=== PATIENT | female | born 1960 | race Caucasian/White ===

== ENCOUNTER 2021-10-08 09:50 | Observation (INO) | payer MEDICARE, MEDICAID, SELFPAY ==
[2021-10-08] VITALS (21 sets, daily range): BP systolic 102–153; BP diastolic 58–81; PULSE 81–98; RESP 14–18; TEMP 36.9–37.1; O2SAT 88–98; BMI 34.7
--- NOTE | 2021-10-08 11:22 | ED.DENTAL ---
HPI - Dental/Oral General Chief complaint: Dental/Oral Stated complaint: oral surgery yesterday, mouth swollen Time Seen by Provider: 10/08/21 11:22 Source: patient and family Mode of arrival: Wheelchair Limitations: no limitations History of Present Illness HPI Narrative: This is a 61-year-old female who comes emergency department with complaint oral surgery yesterday. Patient states she has had 2 lumps for several days on the right cheek and underneath the mandible. She states she saw the dentist yesterday she had abscessed tooth and they did a drooling or extraction placed a small drain and suture that was dissolved pill. She states she woke up this morning and that there was significant increase of swelling of the cheek and underneath the chin. She also notices a slight amount of swelling of the left tongue. She denies fevers or chills. She denies any difficulty with breathing. She denies any sensation of swelling of the posterior oropharynx or lower airway. She denies any issues with eating drinking or swallowing her secretions. She denies any change to her voice or hoarseness. No stridor. She did apply ice packs to the affected area and has had some improvement in her swelling today. She has photos that do show some improvement but still present. Nausea or vomiting. No chest pain or shortness of breath. No other GI or urinary symptoms. She has been on amoxicillin since last Monday and has been continuing to take this. She is a diabetic, she is on insulin, medication for hypothyroid, dyslipidemia and hypertension as well as mood. She does smoke every day. She drinks occasionally, no illicit. Related Data Home Medications Medication Instructions Recorded Confirmed amlodipine 10 mg tablet 5 mg PO DAILY 07/22/20 10/08/21 cyclobenzaprine 5 mg tablet 5 mg PO TID PRN 07/22/20 10/08/21 duloxetine 30 mg capsule,delayed 30 mg PO DAILY 07/22/20 10/08/21 release (Cymbalta) duloxetine 60 mg capsule,delayed 60 mg PO DAILY 07/22/20 10/08/21 release (Cymbalta) gabapentin 600 mg tablet 600 mg PO BEDTIME 07/22/20 10/08/21 hydrochlorothiazide 25 mg tablet 25 mg PO DAILY 07/22/20 10/08/21 insulin glargine 100 unit/mL 24 unit SUBCUT BID 07/22/20 10/08/21 subcutaneous solution (Lantus U-100 Insulin) levothyroxine 125 mcg capsule 125 mcg PO DAILY 07/22/20 10/08/21 liothyronine 5 mcg tablet 10 mcg PO DAILY 07/22/20 10/08/21 lisinopril 40 mg tablet 20 mg PO DAILY 07/22/20 10/08/21 metformin 1,000 mg tablet 1,000 mg PO BID 07/22/20 10/08/21 mupirocin 2 % topical ointment 1 applic TOPICAL DAILY PRN 07/22/20 10/08/21 oxycodone-acetaminophen 7.5 mg-325 See Rx Instructions .ROUTE 07/22/20 10/08/21 mg tablet (Percocet) .COMPLEX PRN rosuvastatin 20 mg tablet 40 mg PO DAILY 07/22/20 10/08/21 Sleep3 See Rx Instructions .ROUTE .COMPLEX 10/08/21 10/08/21 amoxicillin 500 mg capsule 500 mg PO Q6H 10/08/21 10/08/21 bupropion HCl 150 mg tablet,12 hr 150 mg PO BID 10/08/21 10/08/21 sustained-release celecoxib 200 mg capsule 200 mg PO DAILY 10/08/21 10/08/21 trazodone 50 mg tablet See Rx Instructions .ROUTE 10/08/21 10/08/21 .COMPLEX PRN Allergies Allergy/AdvReac Type Severity Reaction Status Date / Time bee venom protein (honey bee) Allergy Severe Swelling Verified 10/08/21 10:11 of Lip/Tongue/Throat adhesive Allergy Intermediate rash Verified 10/08/21 10:11 aspirin Allergy Intermediate BLEEDING Verified 10/08/21 10:11 latex Allergy Intermediate rash Verified 10/08/21 10:11 Review of Systems Review of Systems ROS Unobtainable: All systems reviewed & are unremarkable except as noted in HPI and below Patient History Medical History Degenerative joint disease (DJD) of hip Diabetes Hypothyroidism Insomnia Lumbar radiculopathy Morbid obesity due to excess calories Sacral dysfunction Spondylolisthesis at L4-L5 level Status post lumbar spinal arthrodesis Tobacco use Surgical History H/O Spinal surgery S/P foot surgery, left Family History Mother Hypertension Brother Depression Social History household members: family Smoking Status: Current every day smoker alcohol intake: current Smoking Status: Current every day smoker alcohol intake frequency: 0-2 drinks per day Substance Use Type: does not use Exam Narrative Exam Narrative: GEN: well nourished, well appearing female, alert and oriented x 3, patient appears to be in mild distress. HEENT: Atraumatic, pupils are equal round reactive to light, extraocular movements are intact, nares are clear, TMs are clear with no fluid, there is no conjunctival pallor. Throat is clear without any exudates, erythema, tonsillar enlargement or uvular deviation, patient appears to have tooth 31 extracted or drilled out, there is a small suture in place. Patient has significant swelling and induration of the right cheek and underneath the mandible with fullness and tightness. There is no erythema or warmth appreciated the swelling extends underneath the chin and she has some mild swelling of the left side of her tongue and the left gum region. Uvula is midline, no tonsillar swelling. Patient does not have any hoarseness or change to her voice. She is able to lay flat back in the bed. She has no issues swallowing or handling her secretions. She does not have any swelling of the lips. HEART: Regular rate and rhythm without murmur, clicks, rubs. No carotid bruits, pulses are equal in upper and lower extremities LUNGS:Lungs clear to auscultation, no wheezes, rales, crackles, chest moves symmetrically ABD:bowel sounds normal, soft, non-tender, no guarding, rebound, rigidity, no masses noted, no hepatosplenomegaly :No CVA tenderness MSCL: Non-tender, no muscle atrophy, muscles strength 5/5 upper and lower extremities, full range of motion, normal gait NEURO:CN 2-12 intact, sensation normal SKIN: No erythema or warmth appreciated. Initial Vital Signs Initial Vital Signs: Vital Signs Temperature 98.4 F 10/08/21 10:00 Pulse Rate 90 10/08/21 10:00 Respiratory Rate 14 10/08/21 10:00 Blood Pressure 137/78 10/08/21 10:00 Pulse Oximetry 92 10/08/21 10:00 Course Orders Ordered: ED Orders 10/08/21 11:25 BMP [Basic Metabolic Panel] Stat CBC Auto Diff [Complete Blood Count AUTO DIFF] Stat Lactate (Lactic Acid) Stat Procalcitonin Stat 10/08/21 11:33 CT soft tissue neck w con Stat 10/08/21 12:05 Blood Culture Stat 10/08/21 12:56 COVID19 -Nasal RAPID/Pre-Proc Stat Acetaminophen (Acetaminophen 325 Mg Tablet) 975 mg PO Q8HR PRN PRN Reason: Pain, Mild (1-3) Amlodipine Besylate (Amlodipine 5 Mg Tablet) 5 mg PO DAILY KWAME Bupropion HCl (Bupropion Sr 150 Mg Tab) 150 mg PO BID KWAME Celecoxib (Celecoxib 200 Mg Capsule) 200 mg PO DAILY KWAME Cyclobenzaprine HCl (Cyclobenzaprine 10 Mg Tablet) 5 mg PO TID PRN PRN Reason: Moderate Pain (Scale Score 5-6) Duloxetine HCl (Duloxetine 30 Mg Capsule) 90 mg PO DAILY KWAME Gabapentin (Gabapentin 600 Mg Tablet) 600 mg PO BEDTIME KWAME Ketorolac Tromethamine (Ketorolac 10 Mg Tablet) 10 mg PO Q6HR PRN PRN Reason: Pain, Moderate (4-6) Stop: 10/11/21 17:53 Levothyroxine Sodium (Levothyroxine 125 Mcg Tablet) 125 mcg PO 0600 KWAME Liothyronine Sodium (Liothyronine 5 Mcg Tablet) 10 mcg PO DAILY KWAME Lisinopril (Lisinopril 20 Mg Tablet) 20 mg PO DAILY KWAME Ondansetron HCl (Ondansetron 4 Mg/2 Ml Inj) 4 mg IV Q8HR PRN PRN Reason: Nausea And Vomiting Trazodone HCl (Trazodone 50 Mg Tablet) 100 mg PO BEDTIME PRN PRN Reason: insomnia Discontinued Medications Dexamethasone (Dexamethasone 10 Mg/Ml Vial) 10 mg IV NOW ONE Stop: 10/08/21 11:34 Last Admin: 10/08/21 11:56 Dose: 10 mg Documented by: KRUNAL Sodium Chloride (Normal Saline 0.9%) 1,000 mls @ 1,000 mls/hr IV BOLUS ONE Stop: 10/08/21 12:32 Last Infusion: 10/08/21 14:01 Dose: 0 mls/hr Documented by: Admin: 10/08/21 11:53 Dose: 1,000 mls/hr Documented by: KRUNAL Ampicillin Sodium/Sulbactam (Sodium 3 gm/ Sodium Chloride) 100 mls @ 100 mls/hr IV NOW ONE Stop: 10/08/21 11:36 Last Infusion: 10/08/21 13:50 Dose: 0 mls/hr Documented by: Admin: 10/08/21 12:31 Dose: 100 mls/hr Documented by: KRUNAL Sodium Chloride (Normal Saline 0.9%) 1,000 mls @ 1,000 mls/hr IV BOLUS ONE Stop: 10/08/21 12:43 Last Infusion: 10/08/21 15:16 Dose: 0 mls/hr Documented by: Admin: 10/08/21 14:00 Dose: 1,000 mls/hr Documented by: GIOVANNY Ketorolac Tromethamine (Ketorolac 30 Mg/Ml Vial) 30 mg IV NOW ONE Stop: 10/08/21 11:34 Last Admin: 10/08/21 11:54 Dose: 30 mg Documented by: KRUNAL Consultations Consultation #1: Dr. Ochoa ENT recommends monitoring. If rapidly worsening he would ask that we contact Dr. Isaac who is on-call at 5:00 p.m. today and through the weekend. If patient develops air or signs of subcutaneous emphysema would be transferred to larger tertiary care facility. Time: 15:42 Consultation #2: Dr. Jaramillo, hospitalist. Accepts for observation, plan for IV antibiotics overnight, monitoring for airway protection and patient improving potentially discharge home tomorrow. Spoke with Dr. Ochoa and Dr. Ceballos here is also called back and is on this weekend and aware of the patient. Consultation #3: Dr. Isaac, ENT is on-call in the next 1/2 hour. Reviewed patient case. He is aware the patient and states to touch base with him if any changes or concerning issues. If she improves without any other issues during her hospital stay outpatient follow-up appropriate. Vital Signs Vital signs: Vital Signs - 8 hr 10/08/21 12:00 10/08/21 12:03 10/08/21 12:30 Pulse Rate 86 85 81 Respiratory Rate Blood Pressure 126/67 Pulse Oximetry 98 98 97 10/08/21 12:33 10/08/21 13:00 10/08/21 13:30 Pulse Rate 81 83 81 Respiratory Rate Blood Pressure 139/80 153/74 H 146/75 H Pulse Oximetry 97 95 95 10/08/21 14:00 10/08/21 14:31 10/08/21 15:00 Pulse Rate 85 89 83 Respiratory Rate Blood Pressure 149/81 H 132/69 Pulse Oximetry 95 95 10/08/21 15:10 10/08/21 15:11 10/08/21 15:30 Pulse Rate 82 Respiratory Rate 16 Blood Pressure 102/58 L Pulse Oximetry 88 L 93 92 10/08/21 16:00 Pulse Rate 83 Respiratory Rate Blood Pressure 140/69 Pulse Oximetry 93 MDM - Dental/Oral Lab Data Result diagrams: 10/08/21 11:25 10/08/21 11:25 Labs: Lab Results 10/08/21 10/08/21 10/08/21 Range/Units 11:25 11:25 11:25 WBC 12.1 H (4.5-11.0) X10^3/uL RBC 4.83 (4.0-5.2) X10^6/uL Hgb 14.8 (12.0-16.0) g/dL Hct 43.9 (36-46) % MCV 90.9 (80-100) fL MCH 30.7 (26-34) PG MCHC 33.7 (30-36) % RDW 14.2 (11.6-14.8) % Plt Count 303 (150-400) X10^3/uL Neut % (Auto) 68.9 (50-75) % Lymph % (Auto) 18.2 L (25-40) % Screven % (Auto) 11.0 (3-14) % Eos % (Auto) 1.2 L (2-4) % Baso % (Auto) 0.7 (0-2) % Neut # (Auto) 8400 H (0343-9862) /uL Lymph # (Auto) 2200 (3693-9181) /uL Screven # (Auto) 1300 H (0-900) /uL Eos # (Auto) 100 (0-450) /uL Baso # (Auto) 100 (0-100) /uL Sodium 137 (137-145) mmol/L Potassium 3.5 (3.4-5.1) mmol/L Chloride 99 (98-107) mmol/L Carbon Dioxide 32 (22-32) mmol/L BUN 7 (7-17) mg/dL Creatinine 0.68 (0.52-1.04) mg/dL Estimated GFR > 60 (>60) mL/min BUN/Creatinine Ratio 10.3 (6-22) Glucose 153 H (80-110) mg/dL Lactate 0.9 (0.7-2.1) mmol/L Calcium 9.5 (8.4-10.2) mg/dL Procalcitonin 0.06 (<0.5) ng/mL SARS-CoV-2 (PCR) (Negative) 10/08/21 Range/Units 12:56 WBC (4.5-11.0) X10^3/uL RBC (4.0-5.2) X10^6/uL Hgb (12.0-16.0) g/dL Hct (36-46) % MCV (80-100) fL MCH (26-34) PG MCHC (30-36) % RDW (11.6-14.8) % Plt Count (150-400) X10^3/uL Neut % (Auto) (50-75) % Lymph % (Auto) (25-40) % Screven % (Auto) (3-14) % Eos % (Auto) (2-4) % Baso % (Auto) (0-2) % Neut # (Auto) (5506-7452) /uL Lymph # (Auto) (9500-4235) /uL Screven # (Auto) (0-900) /uL Eos # (Auto) (0-450) /uL Baso # (Auto) (0-100) /uL Sodium (137-145) mmol/L Potassium (3.4-5.1) mmol/L Chloride (98-107) mmol/L Carbon Dioxide (22-32) mmol/L BUN (7-17) mg/dL Creatinine (0.52-1.04) mg/dL Estimated GFR (>60) mL/min BUN/Creatinine Ratio (6-22) Glucose (80-110) mg/dL Lactate (0.7-2.1) mmol/L Calcium (8.4-10.2) mg/dL Procalcitonin (<0.5) ng/mL SARS-CoV-2 (PCR) Negative (Negative) Point of Care Testing Glucose POC 155 Urine Dip Bedside Urine Glucose Negative Bedside Urine Bilirubin - Negative Bedside Urine Ketone - Negative Urine Specific Rudolph 1.015 Bedside Urine Occult Blood - Negative Bedside Urine pH 6.0 Bedside Urine Protein - Negative Bedside Urine Urobilinogen - Negative Bedside Urine Nitrite - Negative Bedside Urine Leukocytes - Negative Esterase Imaging Data CT softi tissue neck: Radiologist's Impression: [address] [address] [address] Scan Report Signed Patient: Cha Ruelas MR#: [id number] : 1960 Acct:[id number] Age/Sex: 61 / F Date of Service: 10/08/21 Loc: ED Accession Number: [id number] ?? Procedure: CT soft tissue neck w con Ordering Provider: Kristine Childs D.O. PROCEDURE:? CT SOFT TISSUE NECK W CON ? INDICATIONS:? left neck, cheek, indurated, swelling ? TECHNIQUE:? Helical axial CT of the neck was obtained after intravenous contrast injection and reformatted in multiple planes.? Radiation dose reduction was achieved utilizing automated exposure control and/or parameter adjustment according to patient's size. ? COMPARISON:? None. ? FINDINGS:? Image quality:? Excellent ? Lymph nodes:? No enlarged lymph nodes seen throughout the neck.? ? Vessels:? Visualized vasculature appears patent.? ? Neck spaces:? Associated with an empty last left mandibular molar socket, there is surrounding soft tissue edema without evidence of mature abscess.? Small medical bandage noted in laying along the buccal surface of the left mandible.? Adjacent submandibular reactive lymph nodes measure up to 7 mm short axis.? ? Otherwise, the oropharynx, nasopharynx, and pharynx demonstrate no mucosal lesions.? The vocal cords, false vocal cords, pyriform sinuses, epiglottis, vallecula, and tongue base all appear normal.? Extramucosal spaces appear unremarkable.? ? Glands:? The parotid and submandibular glands appear normal.? Thyroid gland unremarkable. ? ? Miscellaneous:? Visualized brain and orbits appear normal.? Small peripheral right upper lobe 5 mm nodule noted on image 2/73.? Otherwise, the lung apices appear clear.? Superficial soft tissues appear normal. ? Bones:? No suspicious bony lesions.? Visualized sinuses and mastoids appear unremarkable. ? ? ? IMPRESSION:? ? Left-sided soft tissue cellulitis associated last left mandibular molar tooth extraction. ?No evidence of organized abscess.? Adjacent reactive lymph nodes noted. ? Incidental right upper lobe peripheral 5 mm nodule.? Consider 1 year follow-up to assure stability ? ? ? Approved by: Sidney Castle M.D. on 10/08/2021 at 12:31? [facility] Narrative Medical decision making narrative: This is a 61-year-old female who has had several days of lump and swelling on the left side of her cheek and neck had dental surgery yesterday in [place] with her regular oral surgeon. Patient states overnight she woke up and has had significant increase in swelling which improved moderately with ice packs but does have swelling of the cheek and neck. Her airway is not clearly impinged but she has significant swelling necessitating IV access, CT soft tissue neck and monitoring of her airway. She was started on IV fluids, antibiotics IV although she has been on oral antibiotics and dexamethasone. CT shows cellulitic changes but no abscess or phlegmon appreciated. Airway appears intact with normal appearance. She had some improvement of swelling, airway appears to be intact she has occasional drops in her oxygen but this is when she falls asleep in she is normally on CPAP at home. She still is pretty significant swelling of the neck and underneath and swelling of the tongue has improved but would like to keep for observation. Case was discussed with ENT who is aware of the patient if necessary. hospitalist who accepts with plan for IV antibiotics continued monitoring. Discharge Plan Departure Patient Disposition: Admitted as Observation Clinical Impression: Cellulitis diffuse, face Admit Date/Time: 10/08/21 16:21 Admit Provider: Bernardino Jaramillo
--- NOTE | 2021-10-08 11:33 | DI.CT.S_ITS ---
PROCEDURE: CT SOFT TISSUE NECK W CON INDICATIONS: left neck, cheek, indurated, swelling TECHNIQUE: Helical axial CT of the neck was obtained after intravenous contrast injection and reformatted in multiple planes. Radiation dose reduction was achieved utilizing automated exposure control and/or parameter adjustment according to patient's size. COMPARISON: None. FINDINGS: Image quality: Excellent Lymph nodes: No enlarged lymph nodes seen throughout the neck. Vessels: Visualized vasculature appears patent. Neck spaces: Associated with an empty last left mandibular molar socket, there is surrounding soft tissue edema without evidence of mature abscess. Small medical bandage noted in laying along the buccal surface of the left mandible. Adjacent submandibular reactive lymph nodes measure up to 7 mm short axis. Otherwise, the oropharynx, nasopharynx, and pharynx demonstrate no mucosal lesions. The vocal cords, false vocal cords, pyriform sinuses, epiglottis, vallecula, and tongue base all appear normal. Extramucosal spaces appear unremarkable. Glands: The parotid and submandibular glands appear normal. Thyroid gland unremarkable. Miscellaneous: Visualized brain and orbits appear normal. Small peripheral right upper lobe 5 mm nodule noted on image 2/73. Otherwise, the lung apices appear clear. Superficial soft tissues appear normal. Bones: No suspicious bony lesions. Visualized sinuses and mastoids appear unremarkable. IMPRESSION: Left-sided soft tissue cellulitis associated last left mandibular molar tooth extraction. No evidence of organized abscess. Adjacent reactive lymph nodes noted. Incidental right upper lobe peripheral 5 mm nodule. Consider 1 year follow-up to assure stability Approved by: Sidney Castle M.D. on 10/08/2021 at 12:31
[2021-10-08 11:45] LABS: Add Manual Diff / Slide Review NO; Basophils Absolute Auto 100 /uL (0-100); Basophils Percent Auto 0.7 % (0-2); Eosinophils Absolute Auto 100 /uL (0-450); Eosinophils Percent Auto 1.2 % (2-4); Hematocrit 43.9 % (36-46); Hemoglobin 14.8 g/dL (12.0-16.0); Lymphocytes Absolute Auto 2200 /uL (1100-4500); Lymphocytes Percent Auto 18.2 % (25-40); Mean Corpuscular HGB Conc 33.7 % (30-36); Mean Corpuscular Hemoglobin 30.7 PG (26-34); Mean Corpuscular Volume 90.9 fL (80-100); Monocytes Absolute Auto 1300 /uL (0-900); Neutrophils Absolute Auto 8400 /uL (1500-7000); Neutrophils Percent Auto 68.9 % (50-75); Platelet Count 303 X10^3/uL (150-400); Red Blood Cell Count 4.83 X10^6/uL (4.0-5.2); Red Cell Distribution Width 14.2 % (11.6-14.8); White Blood Cell Count 12.1 X10^3/uL (4.5-11.0)
[2021-10-08 11:49] LABS: BUN Creatinine Ratio 10.3 (6-22); Blood Urea Nitrogen 7 mg/dL (7-17); Calcium 9.5 mg/dL (8.4-10.2); Carbon Dioxide 32 mmol/L (22-32); Chloride 99 mmol/L (98-107); Estimated Glomerular Filt Rate > 60 mL/min (>60); Glucose 153 mg/dL (80-110); HEMOLYSIS < 15 (0-50); Lactate (Lactic Acid) 0.9 mmol/L (0.7-2.1); Potassium 3.5 mmol/L (3.4-5.1); Sodium 137 mmol/L (137-145)
[2021-10-08] MEDS: SODIUM CHLORIDE 0.9% 1,000 ML 1000 ML IV ×2 (11:53→14:00)
[2021-10-08] MEDS: KETOROLAC 30 MG/ML VIAL IV (11:54)
[2021-10-08] MEDS: DEXAMETHASONE 10 MG/ML VIAL IV (11:56)
[2021-10-08 12:06] LABS: Procalcitonin 0.06 ng/mL (<0.5)
[2021-10-08] MEDS: AMPICILLIN/SULBACTAM 3 GM 3 GM in SODIUM CHLORIDE 0.9% 100 ML IV ×2 (12:31→20:30)
[2021-10-08 13:23] LABS: COVID19 -Nasal RAPID Negative (Negative)
--- NOTE | 2021-10-08 18:26 | PC.NURSE ---
Patient admitted from ER to acute care, oriented to room and call light. Denies shortness of breath. Conversant, talkative. Up to bathroom and voided without difficulty. Reports she is hungry, denies sore throat, denies difficulty swallowing. Shows this RN a picture of her face with the swelling from this morning and area is significantly improved. No redness or streaking to left side of face noted, area is puffy and tender to touch. Call light within reach. Continue to monitor.
--- NOTE | 2021-10-08 18:38 | PM.HP.1 ---
History of Present Illness History of Present Illness Date Patient Seen: 10/08/21 Time Patient Seen: 18:39 Chief complaint: oral surgery yesterday, mouth swollen Narrative: 61 F with PMH of DM recent dental extraction yesterday presented with facial swelling starting this AM. Patient History Medical History Degenerative joint disease (DJD) of hip Diabetes Hypothyroidism Insomnia Lumbar radiculopathy Morbid obesity due to excess calories Sacral dysfunction Spondylolisthesis at L4-L5 level Status post lumbar spinal arthrodesis Tobacco use Surgical History H/O Spinal surgery S/P foot surgery, left Family & Social History Family History Mother Hypertension Brother Depression Social History: household members family Prior Living Arrangements House Safety & Behavioral: Feels Safe in Current Yes Environment Been Physically Hurt or No Threatened By a Person Suicidal Ideation Description None Suicide Plan Description No Plan Tobacco & Substance use: Tobacco type cigarettes Smoking Status Current every day smoker alcohol intake current alcohol intake frequency 0-2 drinks per day Substance Use Type does not use Meds Home Medications and Allergies Home Medications Medication Instructions Recorded Confirmed Type amlodipine 10 mg tablet 5 mg PO DAILY 07/22/20 10/08/21 History cyclobenzaprine 5 mg tablet 5 mg PO TID PRN 07/22/20 10/08/21 History duloxetine 30 mg capsule,delayed 30 mg PO DAILY 07/22/20 10/08/21 History release (Cymbalta) duloxetine 60 mg capsule,delayed 60 mg PO DAILY 07/22/20 10/08/21 History release (Cymbalta) gabapentin 600 mg tablet 600 mg PO BEDTIME 07/22/20 10/08/21 History hydrochlorothiazide 25 mg tablet 25 mg PO DAILY 07/22/20 10/08/21 History insulin glargine 100 unit/mL 24 unit SUBCUT BID 07/22/20 10/08/21 History subcutaneous solution (Lantus U-100 Insulin) levothyroxine 125 mcg capsule 125 mcg PO DAILY 07/22/20 10/08/21 History liothyronine 5 mcg tablet 10 mcg PO DAILY 07/22/20 10/08/21 History lisinopril 40 mg tablet 20 mg PO DAILY 07/22/20 10/08/21 History metformin 1,000 mg tablet 1,000 mg PO BID 07/22/20 10/08/21 History mupirocin 2 % topical ointment 1 applic TOPICAL DAILY PRN 07/22/20 10/08/21 History oxycodone-acetaminophen 7.5 mg-325 See Rx Instructions .ROUTE 07/22/20 10/08/21 History mg tablet (Percocet) .COMPLEX PRN rosuvastatin 20 mg tablet 40 mg PO DAILY 07/22/20 10/08/21 History Sleep3 See Rx Instructions .ROUTE .COMPLEX 10/08/21 10/08/21 History amoxicillin 500 mg capsule 500 mg PO Q6H 10/08/21 10/08/21 History bupropion HCl 150 mg tablet,12 hr 150 mg PO BID 10/08/21 10/08/21 History sustained-release celecoxib 200 mg capsule 200 mg PO DAILY 10/08/21 10/08/21 History trazodone 50 mg tablet See Rx Instructions .ROUTE 10/08/21 10/08/21 History .COMPLEX PRN Allergies Allergy/AdvReac Type Severity Reaction Status Date / Time bee venom protein (honey bee) Allergy Severe Swelling Verified 10/08/21 10:11 of Lip/Tongue/Throat adhesive Allergy Intermediate rash Verified 10/08/21 10:11 aspirin Allergy Intermediate BLEEDING Verified 10/08/21 10:11 latex Allergy Intermediate rash Verified 10/08/21 10:11 Review of Systems Review of Systems Narrative: All other systems reviewed with the patient and are negative unless otherwise stated. Exam Vital Signs (past 8 hours): - 10/08/21 11:09 10/08/21 11:30 10/08/21 12:00 Temperature Pulse Rate 86 85 86 Respiratory Rate Blood Pressure 130/66 125/75 Pulse Oximetry 92 90 L 98 10/08/21 12:03 10/08/21 12:30 10/08/21 12:33 Temperature Pulse Rate 85 81 81 Respiratory Rate Blood Pressure 126/67 139/80 Pulse Oximetry 98 97 97 10/08/21 13:00 10/08/21 13:30 10/08/21 14:00 Temperature Pulse Rate 83 81 85 Respiratory Rate Blood Pressure 153/74 H 146/75 H 149/81 H Pulse Oximetry 95 95 95 10/08/21 14:31 10/08/21 15:00 10/08/21 15:10 Temperature Pulse Rate 89 83 Respiratory Rate Blood Pressure 132/69 Pulse Oximetry 95 88 L 10/08/21 15:11 10/08/21 15:30 10/08/21 16:00 Temperature Pulse Rate 82 83 Respiratory Rate 16 Blood Pressure 102/58 L 140/69 Pulse Oximetry 93 92 93 10/08/21 16:30 10/08/21 17:00 Temperature 98.7 F Pulse Rate 87 90 Respiratory Rate 16 Blood Pressure 135/76 Pulse Oximetry 93 94 Oxygen Delivery Method Room Air Oxygen Flow Rate 0 Narrative Exam Narrative: General:? Patient is well developed and well nourished, in no distress at this time. HEENT:? Normocephalic, atraumatic, extraocular muscles intact, oral pharynx is clear and mucous membranes are moist. Neck: supple and symmetric, trachea is midline, no cervical adenopathy. Negative for JVD Chest:? Normal AP diameter and contour without kyphoscoliosis, no tachypnea, equal chest rise bilaterally. Lungs:? CTA b/l no wheezing rhonchi or rales. Cardio:?RRR no m/r/g. Abdomen: S NT ND. No CVA tenderness. Musculoskeletal:? Muscle strength and tone are equal within normal limits, no deformity. Extremities: No edema or joint effusions. No cyanosis or clubbing. Skin:? Pale,? Warm to touch,dry and intact without rashes, ulcerations or petechiae.? Neuro:? Alert and orientated x3,? sensation to touch intact in all extremities, no gross deficits noted of cranial nerves. Psych:? Patient has a well-kept appearance, appropriate affect, mental status attitude thought context and judgment are appropriate for age. Objective Labs Result Diagrams: 10/08/21 11:25 10/08/21 11:25 Labs: Laboratory Results - last 24 hr 10/08/21 10/08/21 10/08/21 11:25 11:25 11:25 WBC 12.1 H RBC 4.83 Hgb 14.8 Hct 43.9 MCV 90.9 MCH 30.7 MCHC 33.7 RDW 14.2 Plt Count 303 Neut % (Auto) 68.9 Lymph % (Auto) 18.2 L [place] % (Auto) 11.0 Eos % (Auto) 1.2 L Baso % (Auto) 0.7 Neut # (Auto) 8400 H Lymph # (Auto) 2200 [place] # (Auto) 1300 H Eos # (Auto) 100 Baso # (Auto) 100 Sodium 137 Potassium 3.5 Chloride 99 Carbon Dioxide 32 BUN 7 Creatinine 0.68 Estimated GFR > 60 BUN/Creatinine Ratio 10.3 Glucose 153 H Lactate 0.9 Calcium 9.5 Procalcitonin 0.06 SARS-CoV-2 (PCR) 10/08/21 12:56 WBC RBC Hgb Hct MCV MCH MCHC RDW Plt Count Neut % (Auto) Lymph % (Auto) [place] % (Auto) Eos % (Auto) Baso % (Auto) Neut # (Auto) Lymph # (Auto) [place] # (Auto) Eos # (Auto) Baso # (Auto) Sodium Potassium Chloride Carbon Dioxide BUN Creatinine Estimated GFR BUN/Creatinine Ratio Glucose Lactate Calcium Procalcitonin SARS-CoV-2 (PCR) Negative Assessment & Plan Assessment & Plan narrative: 1. Facial swelling and recent dental abscess Time Spent With Patient Critical Care time: I spent a total of [] minutes of critical care time on this patient's care today; this time is exclusive of procedural time. Quality VTE Deep Vein Thrombosis/Pulmonary Embolism Present on Admission: No
[2021-10-08] MEDS: buPROPion SR 150 MG TAB PO (20:30)
[2021-10-08] MEDS: GABAPENTIN 600 MG TABLET PO (20:30)
[2021-10-08] MEDS: OXYCODONE/ACETAMINOPHEN 5/325 TABLET 2 TAB PO (20:30)
[2021-10-08] MEDS: TRAZODONE 50 MG TABLET 100 MG PO (20:30)
[2021-10-08] MEDS: INSULIN LISPRO 100 UNIT/ML 3ML VIAL SUBCUT (22:01)
--- NOTE | 2021-10-08 22:57 | PM.HP.1 ---
History of Present Illness History of Present Illness Date Patient Seen: 10/08/21 Time Patient Seen: 18:15 Chief complaint: oral surgery yesterday, mouth swollen Narrative: 61 F with PMH of DM, tobacco use, recent dental extraction yesterday presented with facial swelling starting this AM. Patient also had some swelling in her tongue. She sent a picture to her dentist and oral surgeon whom recommended she come to the nearest emergency room right away over concern for possible airway compromise. She denied any trouble breathing. Her appetite had been decreased over the past few days but she relates that to her tooth pain on the left. She had been taking small bites of food primarily on the right side of her mouth. She denies any recent sick contacts, headaches, vision changes, nasa congestion or runny nose. She denies any rashes. Patient History Medical History Degenerative joint disease (DJD) of hip Diabetes Hypothyroidism Insomnia Lumbar radiculopathy Morbid obesity due to excess calories Sacral dysfunction Spondylolisthesis at L4-L5 level Status post lumbar spinal arthrodesis Tobacco use Surgical History H/O Spinal surgery S/P foot surgery, left Family & Social History Family History Mother Hypertension Brother Depression Social History: household members family Prior Living Arrangements House Safety & Behavioral: Feels Safe in Current Yes Environment Been Physically Hurt or No Threatened By a Person Suicidal Ideation Description None Suicide Plan Description No Plan Tobacco & Substance use: Tobacco type cigarettes Smoking Status Current every day smoker alcohol intake current alcohol intake frequency 0-2 drinks per day Substance Use Type does not use Meds Home Medications and Allergies Home Medications Medication Instructions Recorded Confirmed Type amlodipine 10 mg tablet 5 mg PO DAILY 07/22/20 10/08/21 History cyclobenzaprine 5 mg tablet 5 mg PO TID PRN 07/22/20 10/08/21 History duloxetine 30 mg capsule,delayed 30 mg PO DAILY 07/22/20 10/08/21 History release (Cymbalta) duloxetine 60 mg capsule,delayed 60 mg PO DAILY 07/22/20 10/08/21 History release (Cymbalta) gabapentin 600 mg tablet 600 mg PO BEDTIME 07/22/20 10/08/21 History hydrochlorothiazide 25 mg tablet 25 mg PO DAILY 07/22/20 10/08/21 History insulin glargine 100 unit/mL 24 unit SUBCUT BID 07/22/20 10/08/21 History subcutaneous solution (Lantus U-100 Insulin) levothyroxine 125 mcg capsule 125 mcg PO DAILY 07/22/20 10/08/21 History liothyronine 5 mcg tablet 10 mcg PO DAILY 07/22/20 10/08/21 History lisinopril 40 mg tablet 20 mg PO DAILY 07/22/20 10/08/21 History metformin 1,000 mg tablet 1,000 mg PO BID 07/22/20 10/08/21 History mupirocin 2 % topical ointment 1 applic TOPICAL DAILY PRN 07/22/20 10/08/21 History oxycodone-acetaminophen 7.5 mg-325 See Rx Instructions .ROUTE 07/22/20 10/08/21 History mg tablet (Percocet) .COMPLEX PRN rosuvastatin 20 mg tablet 40 mg PO DAILY 07/22/20 10/08/21 History Sleep3 See Rx Instructions .ROUTE .COMPLEX 10/08/21 10/08/21 History amoxicillin 500 mg capsule 500 mg PO Q6H 10/08/21 10/08/21 History bupropion HCl 150 mg tablet,12 hr 150 mg PO BID 10/08/21 10/08/21 History sustained-release celecoxib 200 mg capsule 200 mg PO DAILY 10/08/21 10/08/21 History trazodone 50 mg tablet See Rx Instructions .ROUTE 10/08/21 10/08/21 History .COMPLEX PRN Allergies Allergy/AdvReac Type Severity Reaction Status Date / Time bee venom protein (honey bee) Allergy Severe Swelling Verified 10/08/21 10:11 of Lip/Tongue/Throat adhesive Allergy Intermediate rash Verified 10/08/21 10:11 aspirin Allergy Intermediate BLEEDING Verified 10/08/21 10:11 latex Allergy Intermediate rash Verified 10/08/21 10:11 Review of Systems Review of Systems Narrative: All other systems reviewed with the patient and are negative unless otherwise stated. Exam Vital Signs (past 8 hours): - 10/08/21 15:00 10/08/21 15:10 10/08/21 15:11 Temperature Pulse Rate 83 Respiratory Rate 16 Blood Pressure 132/69 Pulse Oximetry 88 L 93 10/08/21 15:30 10/08/21 16:00 10/08/21 16:30 Temperature Pulse Rate 82 83 87 Respiratory Rate Blood Pressure 102/58 L 140/69 Pulse Oximetry 92 93 93 10/08/21 17:00 10/08/21 21:40 Temperature 98.7 F 98.7 F Pulse Rate 90 98 H Respiratory Rate 16 18 Blood Pressure 135/76 115/70 Pulse Oximetry 94 92 Oxygen Delivery Method Room Air Oxygen Flow Rate 0 Narrative Exam Narrative: General:? Patient is well developed and well nourished, in no distress at this time. HEENT:? Normocephalic, atraumatic, extraocular muscles intact, oral pharynx is clear and mucous membranes are moist. Recent dental extraction without obvious drainage, mild swelling on the left lower area. Predominant parotid tenderness mainly. No cheek erythema. Neck: supple and symmetric, trachea is midline, no cervical adenopathy. Negative for JVD Chest:? Normal AP diameter and contour without kyphoscoliosis, no tachypnea, equal chest rise bilaterally. Lungs:? CTA b/l no wheezing rhonchi or rales. Cardio:?RRR no m/r/g. Abdomen: S NT ND. No CVA tenderness. Musculoskeletal:? Muscle strength and tone are equal within normal limits, no deformity. Extremities: No edema or joint effusions. No cyanosis or clubbing. Skin:? Pale,? Warm to touch,dry and intact without rashes, ulcerations or petechiae.? Neuro:? Alert and orientated x3,? sensation to touch intact in all extremities, no gross deficits noted of cranial nerves. Psych:? Patient has a well-kept appearance, appropriate affect, mental status attitude thought context and judgment are appropriate for age. Objective Labs Result Diagrams: 10/08/21 11:25 10/08/21 11:25 Labs: Laboratory Results - last 24 hr 10/08/21 10/08/21 10/08/21 11:25 11:25 11:25 WBC 12.1 H RBC 4.83 Hgb 14.8 Hct 43.9 MCV 90.9 MCH 30.7 MCHC 33.7 RDW 14.2 Plt Count 303 Neut % (Auto) 68.9 Lymph % (Auto) 18.2 L [place] % (Auto) 11.0 Eos % (Auto) 1.2 L Baso % (Auto) 0.7 Neut # (Auto) 8400 H Lymph # (Auto) 2200 [place] # (Auto) 1300 H Eos # (Auto) 100 Baso # (Auto) 100 Sodium 137 Potassium 3.5 Chloride 99 Carbon Dioxide 32 BUN 7 Creatinine 0.68 Estimated GFR > 60 BUN/Creatinine Ratio 10.3 Glucose 153 H Lactate 0.9 Calcium 9.5 Procalcitonin 0.06 SARS-CoV-2 (PCR) 10/08/21 12:56 WBC RBC Hgb Hct MCV MCH MCHC RDW Plt Count Neut % (Auto) Lymph % (Auto) [place] % (Auto) Eos % (Auto) Baso % (Auto) Neut # (Auto) Lymph # (Auto) [place] # (Auto) Eos # (Auto) Baso # (Auto) Sodium Potassium Chloride Carbon Dioxide BUN Creatinine Estimated GFR BUN/Creatinine Ratio Glucose Lactate Calcium Procalcitonin SARS-CoV-2 (PCR) Negative Assessment & Plan Assessment & Plan narrative: 61 F with PMH of DM, tobacco use, recent dental extraction yesterday presented with facial swelling starting this AM. 1. Facial swelling - likely reactive after recent dental extraction. CT scan without evidence of abscess or fluid collection and parotid glands appear normal. Had been on amoxicillin as an outpatient. She does have submandibular lymphadenopathy on CT, though had more parotid tenderness on exam. - continue unasyn. Given dose of decadron in the ER but not felt to be allergic in nature at this time. - ENT if symptoms not improving. - possible discharge home tomorrow if swelling continues to improve. Can likely change to augentin from amoxicillin if improvement continues. 2. DM - given recent decreased PO intake will continue only sliding scale insulin at this time. - consider restarting home long acting insulin tomorrow AM. 3. HTN, chronic - continue home medications, will hold home diuretic in setting of infection however. 4. Hypothyroidism, continue home medications 5. Tobacco use, - patient recently started on wellbutrin to assist with quitting. Continue nicotine patches. Smoking likely contributes to her infection risk in the oral cavity. Code: Full, surrogate decision maker discussed but patient unclear at this time whom would make decisions for her. Dispo: Admit to observation. I have utilized all available immediate resources to obtain, update, or review the patient's current medications. Time Spent With Patient Critical Care time: I spent a total of [] minutes of critical care time on this patient's care today; this time is exclusive of procedural time. Quality VTE Deep Vein Thrombosis/Pulmonary Embolism Present on Admission: No
[2021-10-09] VITALS (7 sets, daily range): BP systolic 125–141; BP diastolic 67–74; PULSE 85–86; RESP 18; TEMP 36.6–37.1; O2SAT 93–98
[2021-10-09] MEDS: AMPICILLIN/SULBACTAM 3 GM 3 GM in SODIUM CHLORIDE 0.9% 100 ML IV ×2 (02:14→08:19)
[2021-10-09 06:03] LABS: Add Manual Diff / Slide Review NO; Basophils Absolute Auto 0 /uL (0-100); Basophils Percent Auto 0.3 % (0-2); Eosinophils Absolute Auto 0 /uL (0-450); Eosinophils Percent Auto 0.1 % (2-4); Hematocrit 42.7 % (36-46); Hemoglobin 14.5 g/dL (12.0-16.0); Lymphocytes Absolute Auto 1500 /uL (1100-4500); Lymphocytes Percent Auto 12.1 % (25-40); Mean Corpuscular HGB Conc 33.9 % (30-36); Mean Corpuscular Hemoglobin 30.6 PG (26-34); Mean Corpuscular Volume 90.3 fL (80-100); Monocytes Absolute Auto 800 /uL (0-900); Monocytes Percent Auto 6.4 % (3-14); Neutrophils Absolute Auto 9800 /uL (1500-7000); Neutrophils Percent Auto 81.1 % (50-75); Platelet Count 316 X10^3/uL (150-400); Red Blood Cell Count 4.73 X10^6/uL (4.0-5.2); Red Cell Distribution Width 14.1 % (11.6-14.8)
[2021-10-09 06:28] LABS: BUN Creatinine Ratio 13.3 (6-22); Blood Urea Nitrogen 8 mg/dL (7-17); Calcium 9.1 mg/dL (8.4-10.2); Carbon Dioxide 26 mmol/L (22-32); Chloride 103 mmol/L (98-107); Estimated Glomerular Filt Rate > 60 mL/min (>60); Glucose 189 mg/dL (80-110); HEMOLYSIS < 15 (0-50); Potassium 3.7 mmol/L (3.4-5.1); Sodium 139 mmol/L (137-145)
[2021-10-09] MEDS: buPROPion SR 150 MG TAB PO (06:28)
[2021-10-09] MEDS: LEVOTHYROXINE 125 MCG TABLET PO (06:28)
[2021-10-09] MEDS: OXYCODONE/ACETAMINOPHEN 5/325 TABLET 2 TAB PO ×2 (06:28→10:53)
[2021-10-09] MEDS: NICOTINE 21 MG PATCH TOP (06:29)
[2021-10-09] MEDS: LIOTHYRONINE 5 MCG TABLET 10 MCG PO (08:12)
[2021-10-09] MEDS: DULOXETINE 30 MG CAPSULE 90 MG PO (08:13)
[2021-10-09] MEDS: AMLODIPINE 5 MG TABLET PO (08:13)
[2021-10-09] MEDS: lisinopriL 20 MG TABLET PO (08:13)
[2021-10-09] MEDS: KETOROLAC 10 MG TABLET PO (08:18)
[2021-10-09] MEDS: INSULIN LISPRO 100 UNIT/ML 3ML VIAL SUBCUT (08:23)
--- NOTE | 2021-10-09 09:14 | PM.DS.1 ---
History of Present Illness History of Present Illness Date Patient Seen: 10/09/21 Chief complaint: oral surgery yesterday, mouth swollen Narrative: 61 F with PMH of DM, tobacco use, recent dental extraction yesterday presented with facial swelling starting this AM. Patient also had some swelling in her tongue. She sent a picture to her dentist and oral surgeon whom recommended she come to the nearest emergency room right away over concern for possible airway compromise. She denied any trouble breathing. Her appetite had been decreased over the past few days but she relates that to her tooth pain on the left. She had been taking small bites of food primarily on the right side of her mouth. She denies any recent sick contacts, headaches, vision changes, nasa congestion or runny nose. She denies any rashes. Discharge Providers Provider Date of admission: 10/08/21 16:21 Discharge Date: 10/09/21 Primary care physician: ELVA Rodríguez Discharge provider: Bernardino Jaramillo DO Summary Hospital Course Discharge Diagnosis: 1. Facial cellulitis and submandibular lymphadenopathy. 2. Type 2 diabetes 3. HTN, chronic 4. Hypothyroidism, continue home medications 5. Tobacco use 6. Obesity BMI 34.0 Hospital Course: Who this is a 61-year-old female with a past medical history of hypertension, diabetes, hypothyroidism, and tobacco use who recently underwent a dental extraction for a dental abscess. The day after surgery she began to have worsening facial swelling. CT scan showed no discrete collection but did show submandibular lymphadenopathy and surrounding cellulitis. The patient was started on IV Unasyn and given a dose of Decadron in the emergency room. Her swelling greatly improved the following day, and she was discharged to continue Augmentin at home instead of amoxicillin. No changes were made to her usual home medications. She is recommended to follow up with her oral surgeon as an outpatient as previously scheduled as well as her primary care provider. Patient was counseled on smoking cessation. Patient's obesity contributes to increased risk of infections and complications after surgery. Exam Vital Signs (past 8 hours): - 10/09/21 01:34 10/09/21 04:54 10/09/21 05:00 Temperature 97.8 F Pulse Rate 85 Respiratory Rate 18 Blood Pressure 141/74 H Pulse Oximetry 93 98 96 10/09/21 07:00 10/09/21 07:45 Temperature 98.8 F Pulse Rate 86 Respiratory Rate 18 Blood Pressure 125/67 Pulse Oximetry 93 95 Oxygen Delivery Method Room Air Oxygen Flow Rate 0 Narrative Exam Narrative: General:? Patient is well developed and well nourished, in no distress at this time. HEENT:? Normocephalic, atraumatic, extraocular muscles intact, oral pharynx is clear and mucous membranes are moist. Recent dental extraction without obvious drainage, mild swelling on the left lower area. Predominant submadibular tenderness mainly. No cheek erythema. Neck: supple and symmetric, trachea is midline, no cervical adenopathy. Negative for JVD Chest:? Normal AP diameter and contour without kyphoscoliosis, no tachypnea, equal chest rise bilaterally. Lungs:? no respiratory distress. Cardio:?RRR Extremities: No edema or joint effusions. No cyanosis or clubbing. Neuro:? Alert and orientated x3,? sensation to touch intact in all extremities, no gross deficits noted of cranial nerves. Psych:? Patient has a well-kept appearance, appropriate affect, mental status attitude thought context and judgment are appropriate for age. Objective Labs Result Diagrams: 10/09/21 05:15 10/09/21 05:15 Labs: Laboratory Results - last 24 hr 10/08/21 10/08/21 10/08/21 11:25 11:25 11:25 WBC 12.1 H RBC 4.83 Hgb 14.8 Hct 43.9 MCV 90.9 MCH 30.7 MCHC 33.7 RDW 14.2 Plt Count 303 Neut % (Auto) 68.9 Lymph % (Auto) 18.2 L [place] % (Auto) 11.0 Eos % (Auto) 1.2 L Baso % (Auto) 0.7 Neut # (Auto) 8400 H Lymph # (Auto) 2200 [place] # (Auto) 1300 H Eos # (Auto) 100 Baso # (Auto) 100 Sodium 137 Potassium 3.5 Chloride 99 Carbon Dioxide 32 BUN 7 Creatinine 0.68 Estimated GFR > 60 BUN/Creatinine Ratio 10.3 Glucose 153 H Lactate 0.9 Calcium 9.5 Magnesium Procalcitonin 0.06 SARS-CoV-2 (PCR) 10/08/21 10/09/21 10/09/21 12:56 05:15 05:15 WBC 12.0 H RBC 4.73 Hgb 14.5 Hct 42.7 MCV 90.3 MCH 30.6 MCHC 33.9 RDW 14.1 Plt Count 316 Neut % (Auto) 81.1 H Lymph % (Auto) 12.1 L [place] % (Auto) 6.4 Eos % (Auto) 0.1 L Baso % (Auto) 0.3 Neut # (Auto) 9800 H Lymph # (Auto) 1500 [place] # (Auto) 800 Eos # (Auto) 0 Baso # (Auto) 0 Sodium 139 Potassium 3.7 Chloride 103 Carbon Dioxide 26 BUN 8 Creatinine 0.60 Estimated GFR > 60 BUN/Creatinine Ratio 13.3 Glucose 189 H Lactate Calcium 9.1 Magnesium 2.0 Procalcitonin SARS-CoV-2 (PCR) Negative PFSH Medical History Degenerative joint disease (DJD) of hip Diabetes Hypothyroidism Insomnia Lumbar radiculopathy Morbid obesity due to excess calories Sacral dysfunction Spondylolisthesis at L4-L5 level Status post lumbar spinal arthrodesis Tobacco use Surgical History H/O Spinal surgery S/P foot surgery, left Family History Mother Hypertension Brother Depression Social History household members: family Smoking Status: Current every day smoker alcohol intake: current Discharge Plan Discharge Plan Patient Disposition: Home Discharge orders & Medications Prescriptions: New amoxicillin-pot clavulanate 875-125 mg tablet 1 tab PO BID 10 Days Qty: 20 0RF Continued trazodone 50 mg Tablet See Rx Instructions .ROUTE .COMPLEX PRN (Reason: Sleep) 0RF Rx Instructions: 2-3 TABS PO PRN AT BEDTIME bupropion HCl 150 mg Tablet Sustained-Release 12 Hr 150 mg PO BID 0RF celecoxib 200 mg capsule 200 mg PO DAILY 0RF Rx Instructions: TAKE ONE CAPSULE BY MOUTH DAILY Sleep3 See Rx Instructions .ROUTE .COMPLEX 0RF Rx Instructions: Sleep 3 sleep aid from [employer] with 10mg Melatonin Takes 7 tabs nightly for sleep duloxetine [Cymbalta] 60 mg capsule,delayed release(DR/EC) 60 mg PO DAILY 0RF duloxetine [Cymbalta] 30 mg capsule,delayed release(DR/EC) 30 mg PO DAILY 0RF levothyroxine 125 mcg capsule 125 mcg PO DAILY 0RF liothyronine 5 mcg tablet 10 mcg PO DAILY 0RF rosuvastatin 20 mg tablet 40 mg PO DAILY 0RF metformin 1,000 mg tablet 1,000 mg PO BID 0RF Lantus U-100 Insulin 100 unit/mL solution 24 unit SUBCUT BID 0RF hydrochlorothiazide 25 mg tablet 25 mg PO DAILY 0RF gabapentin 600 mg tablet 600 mg PO BEDTIME 0RF oxycodone-acetaminophen [Percocet] 7.5-325 mg tablet See Rx Instructions .ROUTE .COMPLEX PRN (Reason: Moderate Pain (Scale Score 5-6)) 0RF Rx Instructions: 1-2 TABS Q 4-6H PRN MAX 8 TABS/DAY cyclobenzaprine 5 mg tablet 5 mg PO TID PRN (Reason: Moderate Pain (Scale Score 5-6)) 0RF Rx Instructions: 1-2 TID MAX 6 TABS/DAY lisinopril 40 mg tablet 20 mg PO DAILY 0RF amlodipine 10 mg tablet 5 mg PO DAILY 0RF mupirocin 2 % ointment 1 applic topical DAILY PRN (Reason: Rash) 0RF Discontinued amoxicillin 500 mg capsule 500 mg PO Q6H 0RF Follow up/Referrals: Yaneli Mcdonnell ARNP [Primary Care Provider] - Visit Report/Discharge Packet Instructions: DI for Cellulitis -- Adult Discharge Data Primary Care Provider: Yaneli Mcdonnell Attending Provider: Bernardino Jaramillo VTE Deep Vein Thrombosis/Pulmonary Embolism Present on Admission: No
--- NOTE | 2021-10-09 10:57 | CM.IDA ---
Initial DCP Assessment Note Pt is a 61 yo female, resident of [place], arrives after tooth extraction w/swollen mouth and tongue, discharged today after much improvement w/ IV abx PCP: Yaneli Mcdonnell Payer: LUIS Reviewed chart, pt discussed in multidisciplinary rounds this morning. Patient has been discharged home, no [employer] needs identified. Home w/supportive family. Close outpatient f/u No needs expected from DC planning team although will remain available in case this changes today. Eugenia Hinton MSW
== END 2021-10-09 11:03 | disposition home or self-care (01) ==
LOC: ED 16:05 → AC 16:22
PROVIDERS: Admitting Provider Internal Medicine; Emergency Provider Emergency Medicine; PCP Nurse Practitioner Family; Referring Provider Emergency Medicine; Visit Provider Internal Medicine
DX: R22.0 Localized swelling, mass and lump, head (principal); Z98.818 Other dental procedure status; E11.9 Type 2 diabetes mellitus without complications; Z79.4 Long term (current) use of insulin; E03.9 Hypothyroidism, unspecified; E78.5 Hyperlipidemia, unspecified; I10 Essential (primary) hypertension; F17.210 Nicotine dependence, cigarettes, uncomplicated; Z20.822 Contact with and (suspected) exposure to COVID-19
CPT/HCPCS: 36415; 70491; 80048; 81003; 82962; 83605; 83735; 84145; 85025; 87040; 87635; 94660; 94760; 96365; 96366; 96372; 96375; 99284; 99285; C9803; G0378; J0295; J1100; J1815; J1885; Q9967

== ENCOUNTER → 2023-07-17 10:58 | Outpatient (CLI) | payer MEDICARE, MEDICAID, SELFPAY ==
[2021-10-08 16:54] VITALS: BMI 34.7
--- NOTE | 2023-07-17 11:01 | DI.RAD.S_ITS ---
PROCEDURE: XR KNEE RT 3V INDICATIONS: RIGHT KNEE PAIN TECHNIQUE: 3 views of the knee were acquired. COMPARISON: None. FINDINGS: Bones: No fractures or dislocations. No suspicious bony lesions. Soft tissues: No joint effusion. No suspicious soft tissue calcifications. IMPRESSION: No acute bony abnormality or significant effusion. If symptoms persist with conservative management, consider cross-sectional imaging such as CT or MRI. Approved by: Ruthann Stayc M.D. on 07/17/2023 at 12:31
--- NOTE | 2023-07-17 11:01 | DI.RAD.S_ITS ---
PROCEDURE: XR LUMBAR SPINE MIN 4V INDICATIONS: BACK PAIN TECHNIQUE: 5 views of the lumbar spine were acquired, including bilateral oblique views. COMPARISON: None. FINDINGS: Bones: 5 nonrib-bearing vertebrae are present. Posterior fusion hardware at L5-S1. 10 mm of anterolisthesis of L4 on L5. Multilevel disc space narrowing and endplate osteophyte formation, as well as facet hypertrophy. No vertebral body compression fractures. No suspicious bony lesions. Soft tissues: Overlying bowel gas pattern is normal. No suspicious soft tissue calcifications. IMPRESSION: 1. Multilevel degenerative disc and facet disease. 2. No acute fracture. No osseous lesion. If symptoms and/or clinical suspicion for pathology persist, further assessment with repeat, or advanced imaging (e.g., CT, MRI, or bone scan) may be helpful for further assessment. Dictated by: Ceci Logan M.D. on 07/17/2023 at 11:58 Approved by: Ceci Logan M.D. on 07/17/2023 at 11:59
== END ==
PROVIDERS: PCP Nurse Practitioner Family; Referring Provider Physical Medicine & Rehabilitation; Visit Provider Physical Medicine & Rehabilitation
DX: M51.16 Intervertebral disc disorders with radiculopathy, lumbar region (principal); M47.26 Other spondylosis with radiculopathy, lumbar region; M43.16 Spondylolisthesis, lumbar region; M53.3 Sacrococcygeal disorders, not elsewhere classified; M16.0 Bilateral primary osteoarthritis of hip; M17.11 Unilateral primary osteoarthritis, right knee; E11.69 Type 2 diabetes mellitus with other specified complication; Z79.4 Long term (current) use of insulin; Z98.1 Arthrodesis status
CPT/HCPCS: 20611; 72110; 73562; 99214; J7318

== ENCOUNTER 2023-08-22 14:59 | Outpatient (CLI) | payer MEDICARE, MEDICAID, SELFPAY ==
[2021-10-08 16:54] VITALS: BMI 34.7
[2023-08-22] VITALS (9 sets, daily range): BP systolic 106–150; BP diastolic 74–82; PULSE 78–85; RESP 12–22; TEMP 36.1; O2SAT 93–100
--- NOTE | 2023-08-22 15:30 | DI.RAD.S_ITS ---
PROCEDURE: PAIN L/S TRANSFORAMINAL INJECT INDICATIONS: FACET ARTHOPATHY COMPARISON: None. FINDINGS: Fluoroscopic spot filming was performed to verify placement of spinal needles at the right L4-5 level(s), as labeled on the films. Appropriate location(s) of the needle tip(s) was confirmed by injection of iodinated contrast. IMPRESSION: Fluoroscopic guidance Approved by: Sidney Castle M.D. on 08/22/2023 at 21:21
--- NOTE | 2023-08-22 15:50 | PC.NURSE ---
Patient reports that she just finished a course of Amoxicillin 2-3 days ago for a tooth infection. Reports she needs to have the tooth pulled and is looking for a dentist. Denies any pain, fever or chills. was notified.
[2023-08-22] MEDS: MIDAZOLAM 2 MG/2 ML VIAL 1 MG IV (16:09)
[2023-08-22] MEDS: BUPIVACAINE 0.25% (PF) VIAL 2 ML INJ (16:13)
[2023-08-22] MEDS: BETAMETHASONE 30 MG/5 ML MDV 6 MG INJ (16:13)
[2023-08-22] MEDS: DEXAMETHASONE 10 MG/ML VIAL INJ (16:13)
[2023-08-22] MEDS: iopamidoL 15 ML VIAL 3 ML INJ (16:14)
--- NOTE | 2023-08-22 16:25 | P.PCN_ITS ---
Date/Time/Diagnoses Date of procedure: 08/22/23 Time of procedure: 16:25 Pre-procedure diagnosis: 1. FORAMINAL STENOSIS WITH LE SYMPTOMS Post-procedure diagnosis: same Procedure Notes Procedure: 1. FLUOROSCOPICALLY GUIDED CONTRAST CONTROLLED TRANSFORAMINAL EPIDURAL STEROID INJECTION - RIGHT L4/5 TFESI Indications: Cha is referred by ELVA Mcdonnell for treatment of Foraminal Stenosis with Right LE Symptoms Physician: Alexandr Bae Total Fluoroscopy time (seconds): 13 Total sedation minutes: 11 Complications: none Procedure in detail & Post-procedure care: FINDINGS Foraminal Nerve Root Compression secondary to disc disease and facet hypertrophy DESCRIPTION OF PROCEDURE Following review of allergy and review of potential side effects and complications, including, but not necessarily limited to, infection, allergic reaction, local tissue breakdown, stroke, temporary or permanent nerve injury, paralysis, and possible , the patient indicated that the patient understood and agreed to proceed. An informed consent document was signed by the patient, witnessed by a nurse, and placed in the patient's chart. Additionally, other treatment options including medications, modalities, and physical therapy were reviewed with the patient. After review of previous anaesthesic history and IV conscious sedation the patient was deemed safe to proceed with today?s procedure with IV conscious sedation as ASA class II designation. Safety time-out was performed to confirm patient ID, procedure to be performed and site of procedure. IV sedation was accomplished with a combination of 1mg of Versed was administered by the RN after DO order, titrated to patient comfort during the course of the procedure while the patient remained responsive to all verbal commands In the prone position following sterile prep and drape of the lumbar region, the right L4/5 posterior neuroforamen was identified fluoroscopically. The skin was anesthetized via a 25-gauge 1.5-inch needle with 1% lidocaine solution. At this point, a 25-gauge 3.5-inch spinal needle was atraumatically introduced and advanced under fluoroscopic guidance through the posterior right L4/5 neuroforamen to approximately the anterior aspect of the canal. Depth was confirmed on lateral view. Following negative aspiration, injection of approximately 1.5cc of Isovue 200 under live fluoroscopy in the AP view confirmed excellent flow along the nerve root, into the epidural space without vascular or intrathecal uptake observed Radiological data, including multiple fluoroscopic views of the lumbosacral spine, reveal a spinal needle at the right L4/5 posterior neuroforamen. Subsequent views show flow of contrast material flowing superiorly and inferiorly along the nerve root confirming epidural flow. Subsequently, a test dose of 1.5 cc of 1% lidocaine solution was administered and patient was observed for two minutes for signs or symptoms of complications, including abdominal pain, shortness of breath, bilateral upper or lower extremity weakness, nausea and vomiting, prior to steroid injection. At this point, a total of 2cc or 10mg of dexamethasone and 6mg of betamethasone was injected without incident. The procedure tolerated the procedure well without signs or symptoms of complications prior to transfer to the recovery area continued monitoring without incident. The patient was then transferred to the recovery area where they were observed for an appropriate time after the injection. The patient reported a VAS score of 7 prior to the procedure and a post- procedure VAS of 1. POST OP INSTRUCTIONS The patient was provided a Pain Log to continue to record their response to the target-specific procedure prior to follow-up visit with their referring physician. Additionally, specific post-injection care instructions and a contact number to our office were provided if concerns arise regarding possible complications associated with the procedure are suspected.
== END 2023-08-22 16:52 | disposition home or self-care (01) ==
PROVIDERS: PCP Nurse Practitioner Family; Referring Provider Physical Medicine & Rehabilitation; Visit Provider Physical Medicine & Rehabilitation
DX: M48.061 Spinal stenosis, lumbar region without neurogenic claudication (principal); M51.16 Intervertebral disc disorders with radiculopathy, lumbar region; M47.26 Other spondylosis with radiculopathy, lumbar region
CPT/HCPCS: 64483; 99152; J0702; J1100; J2250; J3490

== ENCOUNTER → 2024-09-16 16:29 | Outpatient (CLI) | payer MEDICARE, MEDICAID, SELFPAY ==
[2021-10-08 16:54] VITALS: BMI 34.7
--- NOTE | 2024-09-16 16:31 | DI.US.S_ITS ---
PROCEDURE: US SOFT TISSUE HEAD AND NECK INDICATIONS: localized swelling on right cheek TECHNIQUE: Real-time scanning was performed of the neck region of interest, with image documentation. COMPARISON: None. FINDINGS: Debris-filled cyst within the area of concern on the right cheek measuring 9 x 4 x 7 millimeters. IMPRESSION: Debris-filled cyst in the area of concern measuring up to 9 millimeters. Findings may represent an epidermal inclusion cyst. Recommend correlation with physical exam. Dictated by: Omar Ocasio M.D. on 09/17/2024 at 9:17 Approved by: Omar Ocasio M.D. on 09/17/2024 at 9:18
== END ==
PROVIDERS: PCP Nurse Practitioner Family; Referring Provider Internal Medicine; Visit Provider Internal Medicine
DX: R22.0 Localized swelling, mass and lump, head (principal)
CPT/HCPCS: 76536